=== PATIENT | female | born 1965 | race Hispanic/Latino ===

== ENCOUNTER 2023-03-06 20:55 | Observation (INO) | payer BC ==
[2023-03-06 22:23] LABS: #Basophils 0.1 10x3/uL (0.0-0.2); #Eosinphils 0.2 10x3/uL (0.0-0.5); #Monocytes 0.7 10x3/uL (0.0-1.1); #Neutrophils 6.4 10x3/uL (1.5-8.4); %Basophils 0.5 % (0.0-2.0); %Eosinophils 2.2 % (0.0-6.0); %Lymphocytes 27.1 % (18.0-47.0); %Neutrophils 62.8 % (40.0-75.0); Mean Corpuscular HGB CONC 33.9 g/dL (32.0-36.0); Mean Corpuscular Volume 88.6 fl (81.6-98.3); Platelet Count 285 10x3/uL (150-450); RBC Distribution Width 13.2 % (11.5-14.5); White Blood Cell (WBC) Count 10.2 10x3/uL (3.5-10.5)
[2023-03-06 22:29] LABS: PTT 26.6 sec (22.0-33.0); Prothrombin Time 10.9 sec (9.5-12.1)
[2023-03-06 22:33] LABS: ALT (SGPT) 31 U/L (8-55); AST (SGOT) 23 U/L (5-34); Albumin 4.2 g/dL (3.5-5.0); Alkaline Phosphatase 104 U/L (40-110); Anion Gap 16 mmol/L (10-20); BUN (Urea Nitrogen) 24 mg/dL (9.8-20.1); Bilirubin, Total 0.5 mg/dL (0.2-1.2); Calc. Creatinine Clearance 0 mL/min (70-130); Calcium 9.1 mg/dL (7.8-10.44); Carbon Dioxide 20 mmol/L (22-29); Chloride 109 mmol/L (98-107); Estimated GFR 92; Globulin 2.7 g/dL (2.4-3.5); Glucose 125 mg/dL (70-105); Lipase 20 U/L (8-78); Potassium 3.8 mmol/L (3.5-5.1); Protein, Total 6.9 g/dL (6.0-8.3); Sodium 141 mmol/L (136-145)
[2023-03-06] MEDS ORDERED: Zolpidem Tartrate 5 MG TAB PO PRN (23:15)
[2023-03-06] MEDS ORDERED: Guaifenesin DM 100-10/5 ML UDCUP PO PRN (23:15)
[2023-03-06] MEDS ORDERED: Ondansetron PF 4 MG/2 ML Vial IVP PRN (23:15)
[2023-03-06] MEDS ORDERED: Senokot S 8.6-50 MG TAB PO PRN (23:15)
[2023-03-06] MEDS ORDERED: Acetaminophen 325 MG TAB PO PRN (23:15)
[2023-03-06] MEDS ORDERED: Calcium Carbonate 500 MG ChewTAB PO PRN (23:15)
[2023-03-06] MEDS ORDERED: Metoprolol Tartrate 25 MG TAB ONE (23:47)
[2023-03-06] MEDS ORDERED: Metoprolol Tartrate 25 MG TAB PO SCH (23:59)
[2023-03-07 04:21] LABS: Anion Gap 14 mmol/L (10-20); BUN (Urea Nitrogen) 24 mg/dL (9.8-20.1); Calc. Creatinine Clearance 0 mL/min (70-130); Calcium 8.8 mg/dL (7.8-10.44); Carbon Dioxide 21 mmol/L (22-29); Cardiac Risk 5.9 (Less than 4.5); Chloride 109 mmol/L (98-107); Cholesterol 199 mg/dl (< 200 Desired); Estimated GFR 101; Glucose 125 mg/dL (70-105); HDL Cholesterol 34 mg/dL (>60 Neg Risk); LDL Cholesterol, Calculated 120 mg/dL; Potassium 3.8 mmol/L (3.5-5.1); Sodium 140 mmol/L (136-145); Triglycerides 224 mg/dL (Less than 150)
[2023-03-07] MEDS ORDERED: Carvedilol 3.125 MG TAB PO SCH (08:00)
[2023-03-07] MEDS ORDERED: Carvedilol 3.125 MG TAB ONE (08:46)
[2023-03-07] MEDS ORDERED: Hydrochlorothiazide 25 MG TAB PO SCH (09:00)
[2023-03-07] MEDS ORDERED: Clopidogrel Bisulfate 75 MG TAB PO SCH (09:00)
[2023-03-07] MEDS ORDERED: Losartan 25 MG TAB PO SCH (09:00)
[2023-03-07] MEDS ORDERED: Iopamidol 370 76% 100 ML VIAL ONE (09:16)
[2023-03-07] MEDS ORDERED: Clopidogrel Bisulfate 75 MG TAB ONE (09:22)
[2023-03-07] MEDS ORDERED: Losartan 25 MG TAB ONE (09:23)
[2023-03-07 14:39] LABS: Hemoglobin A1c 5.2 % (4.0-6.0)
[2023-03-07] MEDS ORDERED: Atorvastatin Calcium 10 MG TAB PO SCH (21:00)
== END 2023-03-07 14:30 | disposition home or self-care (01) ==
LOC: CSHERS 20:55 → INTOOBSV 23:16 → CSHERHOLD 23:16
PROVIDERS: ADMIT Student in an Organized Health Care Education/Training Program; ATTEND Internal Medicine
DX: R07.9 Chest pain, unspecified (principal); R06.09 Other forms of dyspnea; I25.10 Atherosclerotic heart disease of native coronary artery without angina pectoris; I11.0 Hypertensive heart disease with heart failure; I50.9 Heart failure, unspecified; G47.33 Obstructive sleep apnea (adult) (pediatric); E78.5 Hyperlipidemia, unspecified; E66.01 Morbid (severe) obesity due to excess calories; R79.1 Abnormal coagulation profile; R00.0 Tachycardia, unspecified; Z90.49 Acquired absence of other specified parts of digestive tract; Z90.710 Acquired absence of both cervix and uterus; Z87.891 Personal history of nicotine dependence; Z88.6 Allergy status to analgesic agent; Z95.1 Presence of aortocoronary bypass graft
CPT/HCPCS: 36415; 71045; 71275; 80048; 80053; 80061; 83036; 83690; 83735; 83880; 84443; 84484; 85025; 85379; 85610; 85730; 93005; 93306; 93970; 94760; 94762; 96372; G0378; J1650; Q9967